=== PATIENT | female | born 1935 | race Caucasian/White ===

== ENCOUNTER 2017-10-14 14:26 | Inpatient (IN) | payer MEDICARE, BC ==
[~2017-10-14] VITALS: Ht 167.6 cm; Wt 106.5 kg
[~2017-10-14 14:26] MED LIST: AMLO5 PO; ASPI325 PO; ASPI81EC; ATOR10 PO; BENZ2 PO; CLOP75 PO; CODACE30 PO; ESTR.625 PO; ESTR.9; ESTR.9 PO; FENO145 PO; FISH1000 PO; FURO20 PO; FURO40; GABA300 PO; HALO5 PO; HYDACE5 PO; INS70/30I; INSDET100 SC; INSLI100I SC; INSR10I SC; INSU7030P SC; INSULANI SC; ISOMON30 PO; ISOSORB; LAVAP17G PO; LIRA0.6P SQ; LIRA0.6P SUBD; MAGOXI400 PO; METF500 PO; METO25 PO; METO25ER PO; METO50 PO; METO50ER PO; METRIBP PO; MICRO K; MINO100 PO; MULVITA PO; MULVITMIND PO; MULVITMINF PO; NITR.4TPA TOP; OMEP10ER PO; OMEP20ER PO; POLY17UD PO; POTCHL20ER PO; PRAV10 PO; PRAV20 PO; QUET300 PO; RAMI2.5 PO; RAMI5; RAMI5 PO; RXCODACET PO; RXHYDGUAS PO; SERT50; SPIR25 PO; TOCO400; TORSE20; TORSE20 PO; TRAZ150T57 PO; [UNRECOGNIZED DRUG - OTHER]; [UNRECOGNIZED DRUG - OTHER] PO; [UNRECOGNIZED DRUG - REMARK]
[2017-10-14 15:12] LABS: BASOPHILS ABSOLUTE AUTO 0.03 K/mm3 (0.00-0.23); BASOPHILS PERCENT AUTO 0 % (0-2); EOSINOPHILS PERCENT AUTO 1 % (0-6); Hematocrit 41.1 % (33.0-51.0); Hemoglobin 13.9 g/dL (11.5-16.0); IMMATURE GRAN ABSOLUTE AUTO 0.04 K/mm3 (0.00-0.10); IMMATURE GRAN PERCENT AUTO 0 % (0-1); LYMPHOCYTES PERCENT AUTO 32 % (21-46); MONOCYTES PERCENT AUTO 9 % (4-13); Mean Corpuscular HGB 30.1 pg (26.0-34.0); Mean Corpuscular HGB Conc 33.8 g/dL (31.5-36.5); Mean Corpuscular Volume 89 fL (80-100); Mean Platelet Volume 10.7 fL (9.1-12.4); NEUTROPHILS ABSOLUTE AUTO 9.56 K/mm3 (1.96-9.15); NEUTROPHILS PERCENT AUTO 58 % (41-73); Platelet Count 216 K/mm3 (150-400); RDW Coefficient Variation 13.6 % (11.7-14.2); RDW Standard Deviation 44.2 fL (35.1-46.3); Red Blood Cell Count 4.62 M/mm3 (3.80-5.20); White Blood Cell Count 16.43 K/mm3 (4.00-11.30)
[2017-10-14 15:40] LABS: Alanine Aminotransfer (ALT/SGP 31 U/L (12-78); Albumin, Blood 3.2 g/dL (3.4-5.0); Albumin/Globulin Ratio 0.8 (0.8-1.8); Alk Phos 130 U/L (50-136); Anion Gap 6 mmol/L (6-16); Aspartate Aminotrans (AST/SGOT 26 U/L (12-37); Bilirubin, Total 0.3 mg/dL (0.1-1.0); Blood Urea Nitrogen 10 mg/dL (8-24); Bun/Creatinine Ratio 23.9 (12.0-20.0); CO2, Blood 33 mmol/L (21-32); Calcium, Blood 8.6 mg/dL (8.5-10.1); Chloride, Blood 100 mmol/L (98-108); Creatinine, Blood 0.42 mg/dL (0.40-1.00); Globulin, Blood 4.2 g/dL (2.2-4.0); Glomerular Filtration Rate >60 (60-); Glucose, Blood 120 mg/dL (70-99); Potassium, Blood 3.8 mmol/L (3.5-5.5); Sodium, Blood 139 mmol/L (136-145); Total Protein, Blood 7.4 g/dL (6.4-8.2)
[2017-10-14 19:46] LABS: Source, Urine Clean Catch
[2017-10-14 19:48] LABS: Appearance, Urine Clear (Clear); Bilirubin, Urine Neg (Neg); Blood, Urine Neg (Neg); Color, Urine Yellow (P-Yellow); Glucose Qualitative, Urine Neg (Neg); Ketones, Urine Neg (Neg); Leukocyte Esterase, Urine Neg (Neg); Nitrite, Urine Neg (Neg); Protein, Urine Neg (Neg); Urobilinogen, Urine NORM (Normal)
[2017-10-15 05:41] LABS: BASOPHILS ABSOLUTE AUTO 0.02 K/mm3 (0.00-0.23); BASOPHILS PERCENT AUTO 0 % (0-2); EOSINOPHILS ABSOLUTE AUTO 0.14 K/mm3 (0.00-0.68); EOSINOPHILS PERCENT AUTO 1 % (0-6); Hematocrit 37.4 % (33.0-51.0); IMMATURE GRAN ABSOLUTE AUTO 0.04 K/mm3 (0.00-0.10); IMMATURE GRAN PERCENT AUTO 0 % (0-1); LYMPHOCYTES ABSOLUTE AUTO 4.49 K/mm3 (0.84-5.20); LYMPHOCYTES PERCENT AUTO 30 % (21-46); MONOCYTES PERCENT AUTO 11 % (4-13); Mean Corpuscular HGB 29.1 pg (26.0-34.0); Mean Corpuscular HGB Conc 32.1 g/dL (31.5-36.5); Mean Corpuscular Volume 91 fL (80-100); Mean Platelet Volume 10.4 fL (9.1-12.4); NEUTROPHILS ABSOLUTE AUTO 8.77 K/mm3 (1.96-9.15); NEUTROPHILS PERCENT AUTO 58 % (41-73); Platelet Count 179 K/mm3 (150-400); RDW Coefficient Variation 13.9 % (11.7-14.2); RDW Standard Deviation 46.1 fL (35.1-46.3); Red Blood Cell Count 4.12 M/mm3 (3.80-5.20); White Blood Cell Count 15.06 K/mm3 (4.00-11.30)
[2017-10-15 06:15] LABS: Alanine Aminotransfer (ALT/SGP 20 U/L (12-78); Albumin, Blood 2.6 g/dL (3.4-5.0); Albumin/Globulin Ratio 0.8 (0.8-1.8); Alk Phos 97 U/L (50-136); Anion Gap 9 mmol/L (6-16); Aspartate Aminotrans (AST/SGOT 8 U/L (12-37); Bilirubin, Total 0.8 mg/dL (0.1-1.0); Blood Urea Nitrogen 11 mg/dL (8-24); Bun/Creatinine Ratio 20.7 (12.0-20.0); CO2, Blood 29 mmol/L (21-32); Calcium, Blood 7.9 mg/dL (8.5-10.1); Chloride, Blood 100 mmol/L (98-108); Creatinine, Blood 0.53 mg/dL (0.40-1.00); Globulin, Blood 3.4 g/dL (2.2-4.0); Glomerular Filtration Rate >60 (60-); Glucose, Blood 254 mg/dL (70-99); Potassium, Blood 3.8 mmol/L (3.5-5.5); Sodium, Blood 138 mmol/L (136-145)
[2017-10-16] MEDS ORDERED: Augmentin 875-1 EACH PO (16:17)
[2017-10-16] MEDS ORDERED: Dazidox10 MG PO (16:19)
== END 2017-10-16 17:10 | disposition home or self-care (01) | DRG 342 ==
LOC: ER 14:26 → SURS 21:14
PROVIDERS: Emergency Medicine; Internal Medicine; Surgery
PROC: 0DTJ4ZZ Resection of Appendix, Percutaneous Endoscopic Approach (ICD-10-PCS; principal; 2017-10-15 12:30)
DX: K35.80 Unspecified acute appendicitis (principal); I50.32 Chronic diastolic (congestive) heart failure; E11.9 Type 2 diabetes mellitus without complications; I11.0 Hypertensive heart disease with heart failure; E78.5 Hyperlipidemia, unspecified; I25.10 Atherosclerotic heart disease of native coronary artery without angina pectoris; K21.9 Gastro-esophageal reflux disease without esophagitis; E66.9 Obesity, unspecified; Z68.37 Body mass index [BMI] 37.0-37.9, adult; Z95.5 Presence of coronary angioplasty implant and graft; I25.2 Old myocardial infarction; Z88.8 Allergy status to other drugs, medicaments and biological substances; Z79.84 Long term (current) use of oral hypoglycemic drugs; Z79.82 Long term (current) use of aspirin; Z79.4 Long term (current) use of insulin; Z79.899 Other long term (current) drug therapy
CPT/HCPCS: 36415; 71046; 74177; 80053; 81003; 82947; 83690; 85025; 88304; 93005; 93010; 96365; 96375; 99285; J1100; J1170; J1650; J1815; J1885; J2250; J2405; J2543; J2710; J3010; J7030; J7120; Q9967

== ENCOUNTER 2018-03-30 07:58 | Emergency (ER) | payer MEDICARE, BC ==
[~2018-03-30] VITALS: Ht 167.6 cm; Wt 99.8 kg
[~2018-03-30 07:58] MED LIST changes: +Augmentin 875-1 EACH PO; +Dazidox10 MG PO
== END 2018-03-30 09:45 | disposition home or self-care (01) ==
LOC: ER 07:58
DX: S42.032A Displaced fracture of lateral end of left clavicle, initial encounter for closed fracture (principal); S09.90XA Unspecified injury of head, initial encounter; I11.0 Hypertensive heart disease with heart failure; E11.9 Type 2 diabetes mellitus without complications; I50.9 Heart failure, unspecified; Z88.8 Allergy status to other drugs, medicaments and biological substances; Z79.899 Other long term (current) drug therapy; Z79.82 Long term (current) use of aspirin; Z79.4 Long term (current) use of insulin; W22.8XXA Striking against or struck by other objects, initial encounter
CPT/HCPCS: 70450; 71046; 73030; 99284

== ENCOUNTER → 2019-12-11 | Outpatient (CLI) | payer MEDICARE, BC ==
[2019-12-11 14:10] LABS: BASOPHILS ABSOLUTE AUTO 0.04 K/mm3 (0.00-0.23); BASOPHILS PERCENT AUTO 0 % (0-2); EOSINOPHILS ABSOLUTE AUTO 0.22 K/mm3 (0.00-0.68); EOSINOPHILS PERCENT AUTO 2 % (0-6); Hematocrit 40.8 % (33.0-51.0); Hemoglobin 13.5 g/dL (11.5-16.0); IMMATURE GRAN ABSOLUTE AUTO 0.03 K/mm3 (0.00-0.10); IMMATURE GRAN PERCENT AUTO 0 % (0-1); LYMPHOCYTES ABSOLUTE AUTO 5.95 K/mm3 (0.84-5.20); LYMPHOCYTES PERCENT AUTO 48 % (21-46); MONOCYTES ABSOLUTE AUTO 0.78 K/mm3 (0.16-1.47); MONOCYTES PERCENT AUTO 6 % (4-13); Mean Corpuscular HGB Conc 33.1 g/dL (31.5-36.5); Mean Corpuscular Volume 88 fL (80-100); Mean Platelet Volume 10.6 fL (9.1-12.4); NEUTROPHILS ABSOLUTE AUTO 5.29 K/mm3 (1.96-9.15); NEUTROPHILS PERCENT AUTO 43 % (41-73); Platelet Count 186 K/mm3 (150-400); RDW Coefficient Variation 13.7 % (11.7-14.2); RDW Standard Deviation 43.6 fL (35.1-46.3); Red Blood Cell Count 4.66 M/mm3 (3.80-5.20); White Blood Cell Count 12.31 K/mm3 (4.00-11.30)
[2019-12-11 14:30] LABS: Alanine Aminotransfer (ALT/SGP 19 U/L (12-78); Albumin/Globulin Ratio 0.8 (0.8-1.8); Alk Phos 130 U/L (40-126); Anion Gap 7 mmol/L (6-16); Aspartate Aminotrans (AST/SGOT 14 U/L (12-37); Bilirubin, Total 0.3 mg/dL (0.1-1.0); Blood Urea Nitrogen 18 mg/dL (8-24); Bun/Creatinine Ratio 24.7 (12.0-20.0); CO2, Blood 33 mmol/L (21-32); Calcium, Blood 8.7 mg/dL (8.5-10.1); Chloride, Blood 101 mmol/L (98-108); Creatinine, Blood 0.73 mg/dL (0.40-1.00); Globulin, Blood 3.8 g/dL (2.2-4.0); Glomerular Filtration Rate >60 (60-); Glucose, Blood 253 mg/dL (70-99); Potassium, Blood 3.8 mmol/L (3.5-5.5); Sodium, Blood 141 mmol/L (136-145); Total Protein, Blood 6.8 g/dL (6.4-8.2)
== END ==
LOC: LAB EV 14:04 → LAB SHORT 14:04
PROVIDERS: Physician Assistant Surgical
DX: R10.13 Epigastric pain (principal)
CPT/HCPCS: 80053; 83690; 85025

== ENCOUNTER 2021-05-21 20:30 | Emergency (ER) | payer MEDICARE, BC ==
[~2021-05-21] VITALS: Ht 167.6 cm; Wt 100.2 kg
== END 2021-05-21 22:53 | disposition home or self-care (01) ==
LOC: ER 20:30
DX: S06.0X0A Concussion without loss of consciousness, initial encounter (principal); S01.01XA Laceration without foreign body of scalp, initial encounter; I11.0 Hypertensive heart disease with heart failure; I50.9 Heart failure, unspecified; I25.10 Atherosclerotic heart disease of native coronary artery without angina pectoris; E11.9 Type 2 diabetes mellitus without complications; R40.2362 Coma scale, best motor response, obeys commands, at arrival to emergency department; R40.2142 Coma scale, eyes open, spontaneous, at arrival to emergency department; R40.2252 Coma scale, best verbal response, oriented, at arrival to emergency department; Z23 Encounter for immunization; Z79.4 Long term (current) use of insulin; Z95.5 Presence of coronary angioplasty implant and graft; Z79.82 Long term (current) use of aspirin; Z79.899 Other long term (current) drug therapy; Z88.5 Allergy status to narcotic agent; W01.198A Fall on same level from slipping, tripping and stumbling with subsequent striking against other object, initial encounter; Y93.89 Activity, other specified; Y92.000 Kitchen of unspecified non-institutional (private) residence as the place of occurrence of the external cause
CPT/HCPCS: 12002; 70450; 72125; 90471; 90714; 99284-25

== ENCOUNTER 2022-10-21 20:38 | Inpatient (IN) | payer MEDICARE, BC ==
[~2022-10-21] VITALS: Ht 167.6 cm; Wt 97.2 kg
[~2022-10-21 20:38] MED LIST changes: -INSDET100 SC; +LEVEMIR100 UNIT/1 SC
[2022-10-21 21:50] LABS: Hematocrit 36.5 % (33.0-51.0); Hemoglobin 12.1 g/dL (11.5-16.0); Mean Corpuscular HGB 30.3 pg (26.0-34.0); Mean Corpuscular HGB Conc 33.2 g/dL (31.5-36.5); Mean Corpuscular Volume 91 fL (80-100); Mean Platelet Volume 10.5 fL (9.1-12.4); Platelet Count 173 K/mm3 (150-400); RDW Standard Deviation 43.3 fL (35.1-46.3); White Blood Cell Count 25.61 K/mm3 (4.00-11.30)
[2022-10-21 22:12] LABS: Albumin/Globulin Ratio 0.8 (0.8-1.8); Bilirubin, Total 0.2 mg/dL (0.1-1.0); Bun/Creatinine Ratio 17.3 (12.0-20.0); Calcium, Blood 9.3 mg/dL (8.5-10.1); Creatinine, Blood 0.64 mg/dL (0.40-1.00); Globulin, Blood 3.7 g/dL (2.2-4.0); Potassium, Blood 4.8 mmol/L (3.5-5.5); Total Protein, Blood 6.7 g/dL (6.4-8.2)
[2022-10-21 22:34] LABS: BASOPHILS PERCENT MAN 0 % (0-2); EOSINOPHILS ABSOLUTE MAN 0.25 K/mm3 (0.00-0.68); EOSINOPHILS PERCENT MAN 1 % (0-6); LYMPHOCYTES ABSOLUTE MAN 21.51 K/mm3 (0.84-5.20); LYMPHOCYTES PERCENT MAN 84 % (21-46); MONOCYTES ABSOLUTE MAN 1.28 K/mm3 (0.16-1.47); MONOCYTES PERCENT MAN 5 % (4-13); NEUTROPHILS ABSOLUTE MAN 2.56 K/mm3 (1.96-9.15); SEG NEUTROPHILS PERCENT MAN 10 % (41-73); TOTAL CELLS COUNTED 100
[2022-10-22 00:16] LABS: Anti-Xa UFH, PHA Monitoring <0.10 IU/mL; International Normalized Ratio 1.01; Prothrombin Time Results 10.6 Sec (9.7-11.5)
[2022-10-22] MEDS ORDERED: OZEMPIC0.25 MG/0. SC (01:25)
[2022-10-22] MEDS ORDERED: Prinivil10 MG PO (01:28)
[2022-10-22] MEDS ORDERED: NOVOLOG FL100 UNIT/3 SQ (01:30)
--- NOTE | 2022-10-22 04:51 | NUR ---
Assumed care of pt as a new ER admit at 0104. A/Ox4, slightly MI'KMAQ. VSS on RA. LS fine crackles on top and dim at bases. Denies any CP/pressure, does c/o stomach pain that patient attributes to her GERD. Medicated with GI cocktail and nausea med with much relief. SR on tele. Heparin running per emar. Will report to jaylene GONZALES.
[2022-10-22 05:07] LABS: Hematocrit 36.6 % (33.0-51.0); Hemoglobin 12.2 g/dL (11.5-16.0); Mean Corpuscular HGB Conc 33.3 g/dL (31.5-36.5); Mean Corpuscular Volume 90 fL (80-100); Mean Platelet Volume 10.1 fL (9.1-12.4); Platelet Count 159 K/mm3 (150-400); RDW Coefficient Variation 12.9 % (11.7-14.2); RDW Standard Deviation 42.2 fL (35.1-46.3); Red Blood Cell Count 4.07 M/mm3 (3.80-5.20); White Blood Cell Count 30.36 K/mm3 (4.00-11.30)
[2022-10-22 05:42] LABS: Albumin, Blood 2.9 g/dL (3.4-5.0); Albumin/Globulin Ratio 0.8 (0.8-1.8); Bilirubin, Total 0.4 mg/dL (0.1-1.0); Bun/Creatinine Ratio 15.2 (12.0-20.0); Calcium, Blood 9.1 mg/dL (8.5-10.1); Creatinine, Blood 0.59 mg/dL (0.40-1.00); Globulin, Blood 3.6 g/dL (2.2-4.0); Potassium, Blood 4.2 mmol/L (3.5-5.5); Total Protein, Blood 6.5 g/dL (6.4-8.2)
[2022-10-22 06:03] LABS: Creatine Kinase MB 69.9 ng/mL (0.0-3.6); Creatine Kinase MB Index 13.7 (0.0-4.0)
--- NOTE | 2022-10-22 06:30 | NUR ---
Patients troponin increased from 180 to over 31,000 along with CK of 512. Call placed to resident d/t patient having epigastric pain she attributed to GERD, order for repeat EKG which looks comparable to the one she got when she first came in.
[2022-10-22 07:17] LABS: BASOPHILS PERCENT MAN 0 % (0-2); EOSINOPHILS PERCENT MAN 1 % (0-6); LYMPHOCYTES ABSOLUTE MAN 23.07 K/mm3 (0.84-5.20); LYMPHOCYTES PERCENT MAN 76 % (21-46); MONOCYTES ABSOLUTE MAN 1.82 K/mm3 (0.16-1.47); MONOCYTES PERCENT MAN 6 % (4-13); NEUTROPHILS ABSOLUTE MAN 5.16 K/mm3 (1.96-9.15); SEG NEUTROPHILS PERCENT MAN 17 % (41-73); TOTAL CELLS COUNTED 100
[2022-10-22 08:12] LABS: CHOL/HDL RATIO 2.5; Cholesterol 86 mg/dL (50-200); HDL Cholesterol 35 mg/dL (>39); LDL/HDL RATIO 0.7; Low Density Lipoprotein Chol 25 mg/dL (0-110); Triglycerides 132 mg/dL (30-160); Very Low Density Lipoprot Chol 26 mg/dL (6-32)
[2022-10-22 14:47] LABS: Creatine Kinase MB Index 12.1 (0.0-4.0)
--- NOTE | 2022-10-22 18:34 | NUR ---
PT SUMMARY: PT POST ANGIO RECEIVED 1 STENT ON LEFT CIRCUMFLEX, RIGHT GROIN ACCESS SITE WITH CLOSURE DEVICE DRESSING WAS CHANGED ONCE DUE TO OOZING OF BLOOD, DRESSING REMAINED DRY AND INTACT. PT RECOVERED WELL 1PA FOR TRANSFERS FOR TOILETING. VITALS REMAINED STABE HRR SR 70'S, SBP 120'S, SATS ABOVE 90% ON RA, AFEBRILE. PT DAUGHTER AT BEDSIDE MOSLTY TODAY UNTIL AFTER PROCEDURE. AWARE OF THE PLANS. TO DISCHARGE PT IN AM IF STABLE. PT DENIES ANY CHEST PAIN OR DISCOMFORT. PT ABLE TO MAKE NEEDS KNOWN. NS RUNNING AT 125MLS/HR X1 BAG INFUSING WELL, SCDZ IN PLACE FOR DVT PROPHYLAXIS, WILL REPORT TO ONCOMING SHIFT
[2022-10-22 21:23] LABS: Creatine Kinase MB 20.6 ng/mL (0.0-3.6); Creatine Kinase MB Index 10.2 (0.0-4.0)
[2022-10-23 04:03] LABS: Hematocrit 35.1 % (33.0-51.0); Hemoglobin 11.8 g/dL (11.5-16.0); Mean Corpuscular HGB Conc 33.6 g/dL (31.5-36.5); Mean Corpuscular Volume 89 fL (80-100); Mean Platelet Volume 10.3 fL (9.1-12.4); Platelet Count 148 K/mm3 (150-400); RDW Coefficient Variation 12.9 % (11.7-14.2); RDW Standard Deviation 42.5 fL (35.1-46.3); Red Blood Cell Count 3.93 M/mm3 (3.80-5.20); White Blood Cell Count 25.76 K/mm3 (4.00-11.30)
[2022-10-23 04:41] LABS: Bun/Creatinine Ratio 17.1 (12.0-20.0); Calcium, Blood 8.4 mg/dL (8.5-10.1); Creatinine, Blood 0.7 mg/dL (0.40-1.00)
--- NOTE | 2022-10-23 04:56 | NUR ---
Patient remained A/Ox4, VSS on RA, denies any CP/pressure or epigastric discomfort. R groin site C/D/I with small amount of old blood noted on bandage and some minor bruising around site without a hematoma. Will report to dayshift RN.
[2022-10-23 06:39] LABS: BAND PERCENT MAN 1 % (0-8); BASOPHILS PERCENT MAN 0 % (0-2); EOSINOPHILS PERCENT MAN 0 % (0-6); LYMPHOCYTES % ATYPICAL MANUAL 1 % (0-0); LYMPHOCYTES ABSOLUTE MAN 18.28 K/mm3 (0.84-5.20); LYMPHOCYTES PERCENT MAN 70 % (21-46); MONOCYTES ABSOLUTE MAN 1.28 K/mm3 (0.16-1.47); MONOCYTES PERCENT MAN 5 % (4-13); NEUTROPHILS ABSOLUTE MAN 6.18 K/mm3 (1.96-9.15); SEG NEUTROPHILS PERCENT MAN 23 % (41-73); TOTAL CELLS COUNTED 100
--- NOTE | 2022-10-23 10:24 | NUR ---
CARE OF PT ASSUMED AT 0700. PT SLEEPING THIS AM, AWAKENS TO VOICE. PT DENIES C/O CHEST PAIN/SOB/CHEST PRESSURE. PT ASSITED TO COMMODE THEN TO CHAIR FOR BREAKFAST. PT REQUIRED SBA D/T WEAKNESS. DR MARTEL IN TO SEE PT THIS AM, FULL UPDATE GIVEN. FROM DR MARTEL'S STANDPOINT, OKAY TO BE DISCHARGED HOME. PT TO CONTINUE BRILLINTA BID. DRSG TO ATTEMPTED RIGHT RADIAL ART SITE WNL; DRSG C/D/I. AREA ABSENT OF SWELLING, BLEEDING. RIGHT FEM ART SITE WNL. DRSG C/D/I, AREA FREE FROM HEMATOMA, SWELLING, BLEEDING. LUNGS ARE CLEAR, SATS 95% ON RA, PT IS MAKING ADEQUATE URINE W IV LASIX.
--- NOTE | 2022-10-23 10:55 | NUR ---
DR MARIN IN TO SEE PT. DISCHARGE ORDERS FOR HOME TO BE PLACED.
[2022-10-23] MEDS ORDERED: ASPI81CH PO (11:59)
[2022-10-23] MEDS ORDERED: FURO20 PO (12:00)
[2022-10-23] MEDS ORDERED: MAGNESIUM OXID400 M2 PO (12:01)
[2022-10-23] MEDS ORDERED: ATOR40TA PO (12:02)
[2022-10-23] MEDS ORDERED: TICA90TA PO (12:03)
[2022-10-23] MEDS ORDERED: NITR.4SL SL (12:03)
--- NOTE | 2022-10-23 12:50 | NUR ---
VERBAL AND WRITTEN DISCHARGE INFO GIVEN TO PT AND PT'S DAUGHTER W CLEAR UNDERSTANDING. NEW RX'S FAXED TO PHARMACY IN [place] PER PT REQUEST. PT ALREADY HAS F/U APPT SCHEDULED W PCP. DR MARTEL'S OFFICE TO CALL PT TO SCHEDULE F/U W CARDIOLOGY. STENT CARD GIVEN TO PT. PT DC'D HOME IN STABLE CONDITION AT 1252
== END 2022-10-23 12:58 | disposition home or self-care (01) | DRG 246 ==
LOC: ER 20:38 → PCU 20:39
PROVIDERS: Emergency Medicine; Internal Medicine Cardiovascular Disease; ADMIT Internal Medicine
PROC: 027034Z Dilation of Coronary Artery, One Artery with Drug-eluting Intraluminal Device, Percutaneous Approach (ICD-10-PCS; principal; 2022-10-22)
PROC: 02F03ZZ Fragmentation in Coronary Artery, One Artery, Percutaneous Approach (ICD-10-PCS; 2022-10-22)
PROC: 4A023N7 Measurement of Cardiac Sampling and Pressure, Left Heart, Percutaneous Approach (ICD-10-PCS; 2022-10-22)
PROC: B211YZZ Fluoroscopy of Multiple Coronary Arteries using Other Contrast (ICD-10-PCS; 2022-10-22)
PROC: B240ZZ3 Ultrasonography of Single Coronary Artery, Intravascular (ICD-10-PCS; 2022-10-22)
DX: T82.855A Stenosis of coronary artery stent, initial encounter (principal); I21.4 Non-ST elevation (NSTEMI) myocardial infarction; C91.10 Chronic lymphocytic leukemia of B-cell type not having achieved remission; I50.32 Chronic diastolic (congestive) heart failure; I24.9 Acute ischemic heart disease, unspecified; I25.10 Atherosclerotic heart disease of native coronary artery without angina pectoris; E11.9 Type 2 diabetes mellitus without complications; I11.0 Hypertensive heart disease with heart failure; E66.9 Obesity, unspecified; K21.9 Gastro-esophageal reflux disease without esophagitis; I27.20 Pulmonary hypertension, unspecified; Z51.5 Encounter for palliative care; I70.208 Unspecified atherosclerosis of native arteries of extremities, other extremity; E78.00 Pure hypercholesterolemia, unspecified; I08.1 Rheumatic disorders of both mitral and tricuspid valves; I25.2 Old myocardial infarction; Z95.5 Presence of coronary angioplasty implant and graft; Z91.81 History of falling; Z68.35 Body mass index [BMI] 35.0-35.9, adult; Z79.01 Long term (current) use of anticoagulants; Z79.899 Other long term (current) drug therapy; Z79.82 Long term (current) use of aspirin; Z88.8 Allergy status to other drugs, medicaments and biological substances; Z79.84 Long term (current) use of oral hypoglycemic drugs; Z79.4 Long term (current) use of insulin; Z90.49 Acquired absence of other specified parts of digestive tract; Z90.710 Acquired absence of both cervix and uterus; Z79.811 Long term (current) use of aromatase inhibitors
CPT/HCPCS: 36415; 71045; 76937; 80048; 80053; 80061; 82550; 82553; 82947; 83880; 84484; 85025; 85347; 85520; 85610; 85730; 93005; 93010; 93306; 93458; 96366; 96372; 96374; 99152; 99153; 99285-25; A9270; C1725; C1760; C1761; C1769; C1874; C1887; C1894; C9600; C9602; G0378; J1644; J1815; J1940; J2250; J2405; J3010; J7030; J7050; Q9967

== ENCOUNTER 2024-11-23 15:11 | Inpatient (IN) | payer MEDICARE, BC ==
[~2024-11-23] VITALS: Ht 165.1 cm; Wt 83.9 kg
[~2024-11-23 15:11] MED LIST changes: +ASPI81CH PO; +ATOR40TA PO; +MAGNESIUM OXID400 M2 PO; +NITR.4SL SL; +NOVOLOG FL100 UNIT/3 SQ; +OZEMPIC0.25 MG/0. SC; +Prinivil10 MG PO; +TICA90TA PO
[2024-11-23 15:51] LABS: Hemoglobin 10.8 g/dL (11.5-16.0); Mean Corpuscular HGB 29.8 pg (26.0-34.0); Mean Corpuscular HGB Conc 32.7 g/dL (31.5-36.5); Mean Corpuscular Volume 91 fL (80-100); Mean Platelet Volume 10.4 fL (9.1-12.4); Platelet Count 187 K/mm3 (150-400); RDW Coefficient Variation 14.6 % (11.7-14.2); RDW Standard Deviation 48.9 fL (35.1-46.3); Red Blood Cell Count 3.62 M/mm3 (3.80-5.20); White Blood Cell Count 28.93 K/mm3 (4.00-11.30)
[2024-11-23 16:05] LABS: Albumin/Globulin Ratio 0.7 (0.8-1.8); Bilirubin, Total 0.3 mg/dL (0.1-1.0); Bun/Creatinine Ratio 27.7 (12.0-20.0); Calcium, Blood 9.2 mg/dL (8.5-10.1); Creatinine, Blood 1.19 mg/dL (0.40-1.00); Globulin, Blood 4.2 g/dL (2.2-4.0); Potassium, Blood 5.1 mmol/L (3.5-5.5); Total Protein, Blood 7.2 g/dL (6.4-8.2)
[2024-11-23] MEDS ORDERED: Ondansetron HCl 2 MG / ML 2ML Vial IV ONE (17:05)
[2024-11-23] MEDS ORDERED: FentaNYL Citrate 50 MCG/ML 2 ML Injection IV ONE (17:05)
[2024-11-23] MEDS ORDERED: LIRAGLUTID0.6 MG/0.1 SC (17:06)
[2024-11-23] MEDS ORDERED: SPIRONOLACTONE25 MG PO (17:07)
[2024-11-23] MEDS ORDERED: BUMETANIDE0.5 M6 PO (17:07)
[2024-11-23] MEDS ORDERED: Prinivil10 MG (17:08)
[2024-11-23 17:19] LABS: BASOPHILS PERCENT MAN 0 % (0-2); EOSINOPHILS PERCENT MAN 0 % (0-6); LYMPHOCYTES ABSOLUTE MAN 21.98 K/mm3 (0.84-5.20); LYMPHOCYTES PERCENT MAN 76 % (21-46); MONOCYTES ABSOLUTE MAN 0.86 K/mm3 (0.16-1.47); MONOCYTES PERCENT MAN 3 % (4-13); NEUTROPHILS ABSOLUTE MAN 6.07 K/mm3 (1.96-9.15); SEG NEUTROPHILS PERCENT MAN 21 % (41-73); TOTAL CELLS COUNTED 100
[2024-11-23] MEDS ORDERED: Dose Adjust by Pharmacy XX STA (21:47)
[2024-11-23] MEDS ORDERED: Heparin Sodium 5000 Units/ML 1ML MDV IV ONE (21:50)
[2024-11-23] MEDS ORDERED: Heparin Sodium,Porcine/0.5 NS 500 ML IV SCH (21:50)
[2024-11-23 22:13] LABS: Anti-Xa UFH, PHA Monitoring <0.10 IU/mL; International Normalized Ratio 0.97; Prothrombin Time Results 10.4 Sec (9.7-11.5)
[2024-11-23] MEDS ORDERED: Aspirin 325 MG Tab PO STA (22:25)
[2024-11-23] MEDS ORDERED: FLU VACC TS2024-25(6MOS UP)/PF 45 MCG/0.5 ML SYRINGE IM ONE (22:30)
[2024-11-23 23:46] VITALS: BP 134/50
[2024-11-24] MEDS ORDERED: METO25 PO (00:39)
[2024-11-24] MEDS ORDERED: METF500 PO (00:40)
[2024-11-24] MEDS ORDERED: VICTOZA 3-0.6 MG/0.2 SC (00:41)
[2024-11-24] MEDS ORDERED: INSDET100 (00:43)
[2024-11-24] MEDS ORDERED: CALCIUM 600 +1 EA11 PO (00:45)
[2024-11-24] MEDS ORDERED: MAG GLYCINATE100 MG PO (00:45)
[2024-11-24] MEDS ORDERED: PROBIOTIC ACID1 EAC8 PO (00:47)
[2024-11-24] MEDS ORDERED: ERGO400 PO (00:48)
[2024-11-24] MEDS ORDERED: ZINC15 PO (00:48)
[2024-11-24] MEDS ORDERED: Selenomax200 MCG PO (00:49)
[2024-11-24] MEDS ORDERED: [UNRECOGNIZED DRUG - CODE] PO (00:50)
[2024-11-24] MEDS ORDERED: Metoprolol Tartrate 25 MG Tab PO SCH (01:00)
[2024-11-24] MEDS ORDERED: Lactated Ringer's 1,000 ML IV SCH (02:00)
[2024-11-24 04:59] VITALS: BP 122/54
[2024-11-24 05:32] LABS: Hematocrit 31.4 % (33.0-51.0); Hemoglobin 10.4 g/dL (11.5-16.0); Mean Corpuscular HGB 30.8 pg (26.0-34.0); Mean Corpuscular HGB Conc 33.1 g/dL (31.5-36.5); Mean Corpuscular Volume 93 fL (80-100); Mean Platelet Volume 10.5 fL (9.1-12.4); Platelet Count 170 K/mm3 (150-400); RDW Coefficient Variation 14.8 % (11.7-14.2); RDW Standard Deviation 50.4 fL (35.1-46.3); Red Blood Cell Count 3.38 M/mm3 (3.80-5.20); White Blood Cell Count 42.02 K/mm3 (4.00-11.30)
[2024-11-24] MEDS ORDERED: Insulin Human Lispro 100 Units/ML 3ML Syringe SC SCH ×2 (06:00→11:30)
[2024-11-24] MEDS ORDERED: Insulin Regular 100 UNIT/ML 10ML Vial SC SCH (06:00)
[2024-11-24 06:01] LABS: Albumin, Blood 2.8 g/dL (3.4-5.0); Albumin/Globulin Ratio 0.7 (0.8-1.8); Bilirubin, Total 0.3 mg/dL (0.1-1.0); Bun/Creatinine Ratio 26.7 (12.0-20.0); Calcium, Blood 9.1 mg/dL (8.5-10.1); Creatinine, Blood 1.05 mg/dL (0.40-1.00); Globulin, Blood 3.8 g/dL (2.2-4.0); Potassium, Blood 5.5 mmol/L (3.5-5.5); Total Protein, Blood 6.6 g/dL (6.4-8.2)
[2024-11-24] MEDS ORDERED: Nitroglycerin 0.4 MG SUBL SL PRN (06:25)
[2024-11-24] MEDS ORDERED: Polyethylene Glycol 3350 17 gm PO PRN (06:25)
--- NOTE | 2024-11-24 06:47 | NUR ---
PT STABLE SINCE ADMIT LAST NIGHT WITH MINIMAL C/O CONTINUED /10 CHEST PAIN RADIATING DOWN LEFT ARM. PT AOX4, ABLE TO MAKE NEEDS KNOWN. PT IS 1-2 ASSIST UNSTEADY ON FEET. 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 HEPARIN INFUSION CONTINUES AND PT TOLERATING WELL, NO S/S BLEEDING/BRUISING. PT HAS BEEN NPO SINCE ADMIT.
[2024-11-24 07:29] LABS: BAND PERCENT MAN 1 % (0-8); BASOPHILS PERCENT MAN 0 % (0-2); EOSINOPHILS PERCENT MAN 0 % (0-6); LYMPHOCYTES ABSOLUTE MAN 36.13 K/mm3 (0.84-5.20); LYMPHOCYTES PERCENT MAN 86 % (21-46); MONOCYTES ABSOLUTE MAN 1.68 K/mm3 (0.16-1.47); MONOCYTES PERCENT MAN 4 % (4-13); SEG NEUTROPHILS PERCENT MAN 9 % (41-73); TOTAL CELLS COUNTED 100
[2024-11-24 08:00] VITALS: BP 112/48
[2024-11-24] MEDS ORDERED: Docosahexanoic Acid/EPA 1,000 MG CAP PO SCH (09:00)
[2024-11-24] MEDS ORDERED: Atorvastatin 40 MG Tab PO SCH (09:00)
[2024-11-24] MEDS ORDERED: Aspirin 81 MG Chew PO SCH (09:00)
[2024-11-24] MEDS ORDERED: Bumetanide 1 MG Tab PO SCH ×3 (09:00→18:00)
[2024-11-24 12:04] VITALS: BP 107/46
[2024-11-24] MEDS ORDERED: Dose Adjust by Pharmacy XX STA (12:26)
[2024-11-24 16:00] VITALS: BP 109/47
--- NOTE | 2024-11-24 18:05 | NUR ---
"Spiritual Care | Pt. Request Pt. is awake and sitting up in a chair when she welcomes my visit. Pt. is pleasant. Faciliated a life review and listened with interest and empathy. Pt. displays evidence of being aware and engaged. After a good amount of time I prayed with the Pt. Pt. verbalzied gratitude for the spiritual care visit and welcomed this civil engineering drafter to return."
[2024-11-24] MEDS ORDERED: Insulin Glargine-Yfgn 100 Unit/mL 3 ML SYR SC ONE (18:30)
[2024-11-24] MEDS ORDERED: Clopidogrel Bisulfate 75 MG Tab PO SCH (19:00)
[2024-11-24 20:27] VITALS: BP 104/38
[2024-11-24 23:41] VITALS: BP 122/62
[2024-11-25 04:36] VITALS: BP 123/43
--- NOTE | 2024-11-25 05:30 | NUR ---
SHIFT SUMMARY PT A&O X4, ABLE TO MAKE NEEDS KNOWN, MOVING ALL EXTREMITIES WITH PURPOSE, HOLDING APPROPRIATE CONVERSATION, IS PLEASANT AND OBEYS COMMANDS, ABLE TO AMBULATE TO BSC 1PERSON WITH FWW/SOME WEAKNESS NOTED, PT NEEDING ASSISTANCE TO PUT ATTENDS ON ON WIPING AFTER VOIDING ON THE COMMODE/HAVING DIFFICULTY REACHING FEET AND LOR[place] AREA, PT REPORTING NEUROPATHY TO BLE THAT IS NORMAL FOR HER. CONTINUOUS SPO2, SPO2 GREATER THAN 90% T/O THIS SHIFT ON RA, NO SIGNS OF RESPIRATORY DISTRESS NOTED, PT DID HAVE TWO EPISODES OF DESUATION TO THE WHILE SLEEPING/PT WOKEN UP AND QUICKLY RETURNED TO SPO2 GREATER THAN 90%/PT DENIES HX OF SLEEP APNEA. CONTINUOUS TELE MONITORING, HR SINUS WITH A FIRST DEGREE HEART BLOCK 60-70 S T/O THIS SHIFT, NO REPORTS OF CHEST P/P, PULSES PRESENT T/O. BLE EDEMA PRESENT. BOWEL TONES PRESENT IN ALL 4Q, PT DENIES FEELINGS OF CONSTIPATION, ABD SOFT AND NON-TENDER. PT HAVING SOME INCONTINENCE WHEN GETTING UP TO THE BSC, URINE YELLOW IN COLOR. BED LOWEST POSITION, CALL LIGHT IN REACH, AWAITING TO GIVE REPORT TO ONCOMING RN.
[2024-11-25 05:48] LABS: Hematocrit 30.9 % (33.0-51.0); Mean Corpuscular HGB 29.9 pg (26.0-34.0); Mean Corpuscular HGB Conc 32.4 g/dL (31.5-36.5); Mean Corpuscular Volume 92 fL (80-100); Mean Platelet Volume 10.1 fL (9.1-12.4); Platelet Count 164 K/mm3 (150-400); RDW Coefficient Variation 14.6 % (11.7-14.2); RDW Standard Deviation 49.4 fL (35.1-46.3); Red Blood Cell Count 3.35 M/mm3 (3.80-5.20); White Blood Cell Count 38.31 K/mm3 (4.00-11.30)
[2024-11-25 05:56] LABS: Hematocrit 30.3 % (33.0-51.0); Hemoglobin 10.1 g/dL (11.5-16.0); Mean Platelet Volume 10.4 fL (9.1-12.4); Platelet Count 164 K/mm3 (150-400)
[2024-11-25] MEDS ORDERED: Pantoprazole Sodium 20 MG Tab PO SCH (06:00)
[2024-11-25] MEDS ORDERED: Omeprazole 20 MG CapCR PO SCH (06:00)
[2024-11-25 06:08] LABS: Bun/Creatinine Ratio 24.6 (12.0-20.0); Calcium, Blood 9.1 mg/dL (8.5-10.1); Creatinine, Blood 1.14 mg/dL (0.40-1.00); Potassium, Blood 5.3 mmol/L (3.5-5.5)
[2024-11-25] MEDS ORDERED: Dose Adjust by Pharmacy XX STA (07:38)
[2024-11-25 08:47] VITALS: BP 114/45
--- NOTE | 2024-11-25 10:14 | NUR ---
am note this rn assumed care at 0700. vital signs stable. tele sinus rhythm with a first degree av block in ishan 70s. patient is alert and oriented x4. 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 patient reports neuropathy in lower and upper extremities. patient denies pain, chest pain/pressure or shortness of breath. skin is clean dry and intact. gi/gi intact with intermittent episodes of incontenince. lung sounds clear throughtout. this rn spoke with md WHITFIELD whom gave orders to stop heparin at 1200 and that it is okay for patient to discharge today. this rn spoke with md ruiz whom came by and saw the patient and updated her on what Nahum said. orthostatic vitals done per order by md Pena. see vital section. patient is a one person standby assist with front wheel walker. patient states she lives with daughter and has two different walkers at home.
--- NOTE | 2024-11-25 10:29 | NUR ---
update-orhtostatic vitals lying blood pressure 124/52 pulse 71 sitting blood [id number]/45 pulse 73 standing blood pressure 109/52 pulse 74
[2024-11-25 12:04] VITALS: BP 108/51
--- NOTE | 2024-11-25 12:54 | NUR ---
maribel-tele Julita from tele called this rn to inform that patient went into a sinus rhythm with a 2nd degree av black type 1. this rn called md Sidhu and orders for EKG. EKG done and sent to Md SIDHU. MD Sidhu plan to come review tele and holding discharge at this time. Md Pena updated on the rhythm changes and the changes yesterday when patient was in 2nd degree av block type 2 for an hour yesterday on tele.
--- NOTE | 2024-11-25 13:38 | NUR ---
update CK review patient rhythm strips and plan to discharge home with a zio patch.
--- NOTE | 2024-11-25 14:24 | NUR ---
Pt. is awake and welcomes my visit. Pt. is pleasant. Facilitated an update and the Pt. verbalized that she had heard both that she could go home, and that others [id number] she should stay at the hospital. Listened with interest and empathy. Sought to normalize the Pt. experience. Pt. displaayed evidence of trust and confidence. Prayed with the Pt. Pt. verbalized gratitude for the spiritual care visit. Afterward her PCU nurse informed her that she woulld indeed be going home today.
[2024-11-25 15:50] VITALS: BP 137/54
[2024-11-25] MEDS ORDERED: VISBIOME 112.51 EACH PO (16:14)
[2024-11-25] MEDS ORDERED: PANT20 PO (16:15)
[2024-11-25] MEDS ORDERED: CLOP75 PO (16:16)
[2024-11-25] MEDS ORDERED: RANO500T PO (16:16)
--- NOTE | 2024-11-25 16:45 | NUR ---
DISCHARGE this rn went over discharge education with the patient and patient daughter. this rn went over new medications, stopped medications, and follow up appointments. patient and patient daugther verbalized understanding. patient belongings gathered and in room. pateint iv removed and catheter tip was intact. vital signs remain stable. patient has zio patch on placed from [facility] nurses.
[2024-11-25] MEDS ORDERED: Metoprolol Tartrate 25 MG Tab PO SCH (21:00)
== END 2024-11-25 16:59 | disposition home or self-care (01) | DRG 281 ==
LOC: ER 15:11 → PCU 20:41
PROVIDERS: Emergency Medicine; Registered Nurse; Student in an Organized Health Care Education/Training Program; ADMIT Student in an Organized Health Care Education/Training Program
DX: I11.0 Hypertensive heart disease with heart failure (principal); C91.10 Chronic lymphocytic leukemia of B-cell type not having achieved remission; I21.4 Non-ST elevation (NSTEMI) myocardial infarction; N17.9 Acute kidney failure, unspecified; I50.32 Chronic diastolic (congestive) heart failure; I25.10 Atherosclerotic heart disease of native coronary artery without angina pectoris; Z88.8 Allergy status to other drugs, medicaments and biological substances; Z66 Do not resuscitate; E10.9 Type 1 diabetes mellitus without complications; E78.00 Pure hypercholesterolemia, unspecified; E03.9 Hypothyroidism, unspecified; Z79.899 Other long term (current) drug therapy; I44.1 Atrioventricular block, second degree; I25.2 Old myocardial infarction; Z95.5 Presence of coronary angioplasty implant and graft; Z90.710 Acquired absence of both cervix and uterus; Z90.49 Acquired absence of other specified parts of digestive tract; Z98.890 Other specified postprocedural states
CPT/HCPCS: 36415; 71045; 71260; 80048; 80053; 82947; 83735; 83880; 84484; 85014; 85018; 85025; 85027; 85049; 85379; 85520; 85610; 85651; 85730; 86140; 93005; 93010; 93246; 93306; 94762; 96374-59; 96375-59; 97110; 97161; 97530; 99285-25; A9270; J1644; J1815; J2405; J2470; J3010; J7120; Q9967